=== PATIENT | male | born 1960 | race American Indian/Alaskan Native ===

== ENCOUNTER 2025-08-21 09:52 | Day surgery (SDC) | payer MEDICARE, OTHER ==
[2025-08-14 10:20] LABS: MEAN PLATELET VOLUME 8.4 FL (7.4-10.4); PRE OP HEMATOCRIT 47.9 % (42.0-52.0); PRE OP HEMOGLOBIN 16.7 g/dL (14.0-17.9); PRE OP PLATELET COUNT 214 X10'3 (140-440); PRE OP WHITE BLOOD COUNT 9.6 10'3 (4.8-10.8); RED CELL DISTRIBUTION WIDTH 13.6 % (11.5-14.5)
--- NOTE | 2025-08-14 10:25 | ELECTROCARDIOGRAPH REPORT ---
[facility] Test Date: 2025-08-14 Test Time: 10:23:20 Pat Name: ORACIO YEUNG Department: PRE/OP CARDIOLOGY Room: Gender: M Site Coordinator: ZOILA : 1960 Requested By: DANIAL NAVARRO Order Number: [id number] Reading MD: Dr. HERMELINDO Atkinson Measurements Intervals [place] Rate: 52 P: 45 VA: 159 QRS: -39 QRSD: 119 T: 193 QT: 489 QTc: 455 Interpretive Statements Sinus rhythm Atrial premature complexes Nonspecific IVCD with LAD Abnormal T, consider ischemia, diffuse leads Electronically Signed On 08-14-2025 18:43:[address] HERMELINDO Atkinson Please click the below link to view image of tracing.
[2025-08-14 10:31] LABS: CREATININE 1.30 MG/DL (0.60-1.10); PRE OP ALT 22 U/L (30-65); PRE OP ANION GAP 10 (8-16); PRE OP AST 20 U/L (10-37); PRE OP BILIRUB, TOTAL 0.5 MG/DL (0.0-1.0); PRE OP POTASSIUM 3.9 MMOL/L (3.4-5.1); PRE OP SODIUM 141 MMOL/L (135-145); TOTAL CARBON DIOXIDE 25.2 MMOL/L (24-32); eGFR 55 ML/MIN
[2025-08-14 10:47] LABS: PRE OP GLUCOSE 203 MG/DL (70-104)
[2025-08-21] VITALS (9 sets, daily range): BP systolic 112–154; BP diastolic 58–84; PULSE 56–82; RESP 14–18; TEMP 97.9; O2SAT 95–99
[~2025-08-21] VITALS: Ht 167.6 cm; Wt 74.2 kg
[~2025-08-21 09:52] MED LIST: ASPI-1264 PO; BUPIVAcaine/PF 2.5mg/ml (0.25%) 10ml vial ONE; CHONDROITIN/GLUCOSAM PO; EMPA25TA PO; FENO134C21 PO; KRILL OIL PO; LIDOcaine 1% 30ml preserv. free vial ONE; MAGNESIUM PO; METO-384 PO; POTASSIUM PO; PRAV80TA75; SAW PALMETTO PO; SITA1TAB6 PO; TELM20TA8 PO
[2025-08-21] MEDS: ringers solution, lacted 1,000 ML IV SCH (10:21)
[2025-08-21] MEDS: ceFAZolin 2gm/dext,iso 50mL 50 ML IV ONE (10:27)
[2025-08-21] MEDS ORDERED: dexamethasone sod phosphate 4mg/ml inj. ONE (13:00)
[2025-08-21] MEDS ORDERED: glycopyrrolate 0.2mg/ml inj ONE (13:00)
[2025-08-21] MEDS ORDERED: fentaNYL/PF 50MCG/1 ML 2ML syringe ONE (13:10)
[2025-08-21] MEDS ORDERED: midazolam 1 mg/ML 2ml injection ONE (13:11)
[2025-08-21] MEDS ORDERED: acetaminophen 1,000mg/100ml IV 100 ML IV ONE (13:21)
[2025-08-21] MEDS ORDERED: propofol inj 20 ML IV ONE (13:23)
[2025-08-21] MEDS ORDERED: ondansetron/PF 4mg/2ml inj ONE (13:23)
[2025-08-21] MEDS ORDERED: rocuronium 10mg/ml inj IV ONE (13:23)
[2025-08-21] MEDS ORDERED: LIDOcaine 1%/PF 5ML 10 MG/ML VIAL ONE (13:23)
[2025-08-21] MEDS: BUPIVAcaine/PF 2.5mg/ml (0.25%) 10ml vial IJ ONE (13:46)
[2025-08-21] MEDS: LIDOcaine 1% 30ml preserv. free vial IJ ONE (13:48)
[2025-08-21] MEDS ORDERED: labetalol 20mg/4ml (5mg/ml) syringe IV PRN (13:50)
[2025-08-21] MEDS ORDERED: ondansetron/PF 4mg/2ml inj IV PRN (13:50)
[2025-08-21] MEDS ORDERED: hydrALAZINE 20mg/ml inj. IV PRN (13:50)
[2025-08-21] MEDS ORDERED: ringers solution, lacted 1,000 ML IV SCH (13:50)
[2025-08-21] MEDS ORDERED: fentaNYL/PF 50MCG/1 ML 2ML syringe IV PRN ×2 (13:50)
[2025-08-21] MEDS ORDERED: morphine 4 MG/ML inj SYRINge IV PRN (13:50)
[2025-08-21] MEDS ORDERED: HYDROcodone/acetaminophen 5mg/325mg tablet PO PRN (14:50)
--- NOTE | 2025-08-21 15:07 | OPERATIVE REPORT ---
Operative Report Providers to CC CC: LUIZ NAVARRO MD ~ Date of Procedure: Aug 21, 2025 Pre-Operative Diagnosis: Right inguinal hernia Post-Operative Diagnosis SAME as PRE-Op Procedure Performed Robotic assisted, laparoscopic right inguinal hernia repair with mesh Surgeon: Luiz Navarro MD FACS [employer] None Anesthesiologist: Tres Garcias Type of Anesthesia: General Findings: [id number] indirect right inguinal hernia Wound class I Complications None Prosthetics\Implants used: Extra-large right Dextile mesh Estimated Blood Loss: Minimal Specimen Removed: None Description of Procedure: Patient was brought to the operating room and identified by the nursing staff and the attending physician. Patient was placed supine and general anesthesia was induced. Patient's abdomen was prepped and draped in standard sterile fashion. Preoperative antibiotics were given. Supraumbilical incision was made to allow for standard Fournier entry technique. Laparoscope was inserted after insufflation. Bilateral, 8.5 mm robotic trochars were placed under laparoscopic guidance following administration of local anesthetic. The bewarket robotic arm was docked to the patient and instruments placed intra-abdominally under laparoscopic visualization. The left hemipelvis was examined and showed no evidence of left inguinal hernia. An indirect hernia was identified on the right side. Hernia sac was moderate in size. A rent was created in the peritoneum from the median umbilical fold and carried out laterally towards the anterior superior iliac spine. Preperitoneal flap was created and carried down to the symphysis pubis. The retropubic space of [place] was developed and the bladder swept medially. Dissection was carried out laterally until a direct hernia sac was identified. This was actually quite large in size. Hernia sac was completely mobilized out of the indirect space and reduced. Further dissection continued out laterally and peritoneum was dissected away from the cord structures. The critical view of the myopectineal orifice was achieved. Dissection was carried out laterally to allow space for mesh deployment. An extra- large, Dextile mesh and suture was passed intra-abdominally. Mesh was laid in the preperitoneal space covering both indirect, direct, and potential femoral and obturator hernias. Mesh laid without wrinkles or folds. 3 tacking sutures using 0 Ethibond were used to fix the mesh at the symphysis pubis, rectus abdominis, and just anterior to the anterior superior iliac spine. The peritoneal rent was then closed with running, 2/0, absorbable locking suture. [place] were retrieved. Abdomen was deflated and secondary trochars removed. Fascia at the umbilical port site was closed with 0 Vicryl sutures. Skin incisions were closed with 4-0 Monocryl sutures in a subcuticular fashion. Sterile dressings were applied. Patient was awakened and taken to the postanesthesia care unit in stable condition. Counts repoted as correct: Yes LUIZ NAVARRO MD Aug 21, 2025 15:07
== END 2025-08-21 15:32 | disposition home or self-care (01) ==
LOC: PAS 09:52
PROVIDERS: ATTEND Surgery
DX: K40.90 Unilateral inguinal hernia, without obstruction or gangrene, not specified as recurrent (principal); I49.1 Atrial premature depolarization; I10 Essential (primary) hypertension; I25.119 Atherosclerotic heart disease of native coronary artery with unspecified angina pectoris; E11.9 Type 2 diabetes mellitus without complications; G43.909 Migraine, unspecified, not intractable, without status migrainosus; I25.2 Old myocardial infarction; Z87.442 Personal history of urinary calculi; Z79.82 Long term (current) use of aspirin; Z79.899 Other long term (current) drug therapy; Z95.1 Presence of aortocoronary bypass graft
CPT/HCPCS: 36415; 49650; 80053; 82948; 85025; 93005; A4215; A4618; C1781; J0131; J0690; J1100; J2003; J2250; J2405; J2704; J2710; J3010; J3490; J7030; J7120; Z7506; Z7508; Z7512; Z7610